=== PATIENT | female | born 1995 | race Caucasian/White ===

== ENCOUNTER 2020-09-18 12:34 | Outpatient (CLI) | payer OTHER, SELFPAY ==
--- NOTE | ~2020-09-18 | US_ITS ---
EXAMINATION: US breast RT complete HISTORY: Developing asymmetric enlargement of the right breast compared to the left. TECHNIQUE: Complete right breast ultrasound was performed in all four quadrants, subareolar region, a nd the axilla. FINDINGS: No sonographic correlate is identified for the asymmetric enlargement of the right breast. There is no suspicious cystic or solid mass. Dense fibroglandular tissue is noted in the upper outer quadrant of the breast. There are benign-appearing lymph nodes of the axilla. IMPRESSION: No specific sonographic correlate is identified for the reported asymmetric right breast enlargement. Further evaluation at this time should be based on clinical assessment. Continued follow-up physical examination is recommended. BI-RADS Category 1: Negative Reviewed, dictated and finalized at location A. Y REP IMPRESSION: No specific sonographic correlate is identified for the reported asymmetric rig ht breast enlargement. Further evaluation at this time should be based on clini bryson assessment. Continued follow-up physical examination is recommended. BI-RADS Category 1: Negative
== END 2020-09-18 12:35 | disposition home or self-care (01) ==
PROVIDERS: Visit Provider Advanced Practice Midwife
DX: N64.89 Other specified disorders of breast (principal)
CPT/HCPCS: 76641; 76642

== ENCOUNTER 2021-05-29 14:10 | Emergency (ER) | payer OTHER, SELFPAY ==
[2021-05-29 14:16] VITALS: BP 139/91; PULSE 89; RESP 14; TEMP 37.1; O2SAT 100
[2021-05-29 14:25] VITALS: BP 139/91; PULSE 89; RESP 14; TEMP 37.1; O2SAT 100
--- NOTE | 2021-05-29 14:35 | ED.URI ---
HPI - URI/Sore Throat General Chief Complaint: Upper Respiratory Infection Stated Complaint: Possible sinus infection Time Seen by Provider: 05/29/21 14:35 Source: patient and RN notes reviewed Mode of arrival: ambulatory Limitations: no limitations History of Present Illness HPI Narrative: 25-year-old female presents with concern for nasal congestion, sinus pressure, sinus pain for 1 week. Reports history of severe allergies, has had allergy issues over the past week, symptoms have been worsening despite use of [id number] medications. She denies cough, shortness of breath, increased use of her asthma medications. She denies known sick contacts. Denies fever, cough, body aches, chills, sweats. Reports history of sinus infection MD elicited complaint: nasal congestion Related Data Home Medications Medication Instructions Recorded Confirmed cetirizine [Zyrtec] 10 mg PO DAILY 05/29/21 05/29/21 fluoxetine [Prozac] 20 mg PO DAILY 05/29/21 05/29/21 norethindrone-e.estradiol-iron 1 tablet PO DAILY 05/29/21 05/29/21 [Junel FE .03/28 (28)] omeprazole 40 mg PO DAILY 05/29/21 05/29/21 Allergies Allergy/AdvReac Type Severity Reaction Status Date / Time No Known Allergies Allergy Verified 05/29/21 14:24 Review of Systems Review of Systems: CONSTITUTIONAL: Denies malaise, chills, sweats, or fever. EYES: Denies visual changes, redness, or discharge. ENT: Reports rhinorrhea, congestion, sinus pain. Denies otalgia and sore throat. CARDIOVASCULAR: Denies chest pain, palpitations, or edema. RESPIRATORY: Denies cough or dyspnea. GASTROINTESTINAL: Denies abdominal pain, nausea, vomiting, diarrhea SKIN: Denies rash or itching. MUSCULOSKELETAL: Denies myalgia. NEUROLOGIC: Reports headache. All systems reviewed & are unremarkable except as noted in HPI and below PMFSH Comments At time of signature, agree with nursing past medical, surgical, social and family history. There is no relevant family history pertinent to the presenting complaint Exam Narrative: GENERAL: Well-appearing, well-nourished, and in no acute distress. HEAD: Normocephalic EYES: PERRLA, conjunctivae clear ENT: Nares clear, turbinates edematous and erythematous, sinus tenderness. Mucous membranes moist. TM pearly bruno with dull light reflex bilaterally; no tragal tenderness. Oropharynx not erythematous without lesions. Tonsils not enlarged and without exudate, no drooling, no hoarseness, no trismus, uvula midline. NECK: Supple. No lymphadenopathy CHEST: Clear to auscultation, breath sounds equal. No wheezing, rhonchi, rales, or stridor. No respiratory distress, speaks in full sentences. HEART: Regular rate and rhythm. No murmur heard. SKIN: Warm, dry, no rash. NEURO: Alert and oriented x3. PSYCH: Normal mood and affect Course Course Emergency Course: Patient is aware of diagnosis, understands and agrees to treatment plan. Anticipatory guidance given. Patient agrees to follow-up as directed and is aware of reasons to seek care at the emergency department. Portions of this record may have been created with voice recognition software Vital Signs Vital signs: Vital Signs Temperature 98.7 F 05/29/21 14:16 Pulse Rate 89 05/29/21 14:16 Respiratory Rate 14 05/29/21 14:16 Blood Pressure 139/91 H 05/29/21 14:16 Pulse Oximetry 100 05/29/21 14:16 Temperature 98.7 F 05/29/21 14:25 Pulse Rate 89 05/29/21 14:25 Respiratory Rate 14 05/29/21 14:25 Blood Pressure 139/91 H 05/29/21 14:25 Pulse Oximetry 100 05/29/21 14:25 Reviewed. Patient has been instructed to follow up with her primary care provider within the next week regarding her elevated blood pressure today. MDM - URI/Sore Throat MDM Narrative Medical decision making narrative: Differential diagnosis considered: Estrella virus, strep pharyngitis, allergic rhinitis, upper respiratory tract infection, sinusitis, rhinosinusitis, nasopharyngitis. viral pharyngitis, otitis media, otitis e
== END 2021-05-29 14:52 | disposition home or self-care (01) ==
PROVIDERS: Emergency Provider Nurse Practitioner
DX: J01.90 Acute sinusitis, unspecified (principal); J45.909 Unspecified asthma, uncomplicated; K21.9 Gastro-esophageal reflux disease without esophagitis; F41.9 Anxiety disorder, unspecified
CPT/HCPCS: 99213; G0463